=== PATIENT | female | born 1980 | race Caucasian/White ===

== ENCOUNTER 2020-03-05 05:07 | Inpatient (IN) | payer OTHER, SELFPAY ==
[2020-03-05 08:29] LABS: HCT 36.8 % (36.0-46.0); HGB 12.7 g/dL (12.0-15.5); Mean Corp. HGB Concentration 34.5 g/dL (32.0-36.0); Mean Corpuscular Hemoglobin 28.5 pg (27.0-33.0); Mean Corpuscular Volume 82.5 fL (80-95); Mean Platelet Volume 12.6 fL (8.0-11.0); Platelet Count 217 x1000/uL (130-400); RBC 4.46 m/cumm (4.00-5.20); RBC Distribution Width 13.5 % (11.7-14.6); White Blood Cell Count 12.71 k/cumm (4.4-10.8)
[2020-03-05] MEDS: Lactated Ringers 1,000 ML 200 ML IV ×2 (17:42→22:55)
[2020-03-05] MEDS: Sodium Citrate 30 ML CUP PO (17:42)
[2020-03-05] MEDS: ceFAZolin 2 GM/50 ML BAG IVPB (17:42)
--- NOTE | 2020-03-05 18:01 | OBCE_ITS ---
Date of service: 03/05/20 Time of Service: 18:02 Assessment and Plan Assessment and plan (1) Arrest of descent, delivered, current hospitalization: Start date: 03/05/20 Status: Acute Assessment and plan: Patient is a 39-year-old female primigravida who had care per her primary care providers. She presented early this morning in active labor. She progressed the point that she was completely dilated and with good maternal effort pushed for approximately 4-1/2 to 5 hours. Flattened anterior posterior diameter of her pelvis. Due to estimated weight of 8- 1/2 pounds with poor position the decision was made for primary section. The risk and benefits including infection, bleeding, injury to sound surrounding organs, risk of anesthesia, risk of thromboembolic event and were all explained to the patient full informed consent was obtained. Patient will be taken the operating room for primary section the plan would be for spinal anesthetic, conversion to general if needed. History of Present Illness History of Present Illness Chief Complaint: 39-year-old G1 at 40 weeks and 1 day with arrest of descent, pushing for 5 Consults Consult date: 03/05/20 Requesting physician: Bruce Decker Review of Systems Narrative: I was called to see the patient today after pushing for approximately 4-1/2 hours. Evaluation for operative vaginal delivery versus section was performed. Patient was found to be in the occiput posterior position with minimal It and vertex wedged against the pubic arch. Flattened sacrum with short anterior posterior diameter and estimated weight by Guevara's approximately 8-1/2 to 9 pounds. Patient has been pushing with good maternal effort however is unable to deliver the baby underneath the pubic symphysis. Constitutional Constitutional: Reports as per HPI Cardiovascular Cardiovascular: Reports system reviewed and no additional complaints, except as documented Respiratory Respiratory: Reports as per HPI Exam Narrative Exam Narrative: Gravid female with estimated weight 8-1/2 to 9 pounds baby in the persistent occiput posterior position and arrest of descent Const General: cooperative Nutritional Appearance: average body habitus and well nourished Other: Significant fatigue due to pushing Eyes General: appearance normal, both eyes and all related structures Resp Effort & Inspection: normal respiratory effort Cardio Rate: regular rate Rhythm: regular rhythm OB/External & Speculum: external exam normal Manual OB Exam: dilated 10, effaced and station '+1 Results Labs Result diagrams: 03/05/20 08:15 Labs: Laboratory Results - last 24 hr 03/05/20 03/05/20 08:15 08:15 WBC 12.71 H RBC 4.46 Hgb 12.7 Hct 36.8 MCV 82.5 MCH 28.5 MCHC 34.5 RDW 13.5 Plt Count 217 MPV 12.6 H Patient ABO/Rh O Positive Antibody Screen Negative
[2020-03-05] MEDS: Methylergonovine 0.2 MG/ML VIAL IM (19:02)
--- NOTE | 2020-03-05 20:05 | ROE_ITS ---
Date of service: 03/05/20 Operative Note Operative Note DATE OF PROCEDURE: 03/05/20 PRE-OP DIAGNOSIS: Arrest of descent POST-OP DIAGNOSIS: same POP PROCEDURE: Primary section SURGEON: Tish Bobby ANESTHESIA: spinal ESTIMATED BLOOD LOSS: 350 PATHOLOGY: none sent COMPLICATIONS: None Patient was transported to: floor Patient's condition: stable Indications: Arrest of descent, pushing greater than 5 hours Findings: Normal intrauterine with viable female infant Apgars 8 and 9. Normal uterus tubes and ovaries Procedure Description: Patient was taken the operating suite with an IV running. She was placed in the supine right lateral position and spinal anesthesia administered with ease. She was then placed in the dorsal supine position with leftward tilt prepped and draped in the usual sterile fashion. Prior to abdominal prep, heart tones were noted to be 130s. Vaginal examination performed baby was found to be in the occiput posterior position and vertex gently lifted out of the pelvis for ease of delivery. Ramirez catheter was inserted. Anesthesia tested and found to be adequate A Pfannenstiel skin incision was made carried down to the underlying fascia which was nicked in the midline and fascial instead incision extended laterally. Rectus muscles identified and split in the midline. Peritoneum identified tented up and entered sharply and the peritoneal incision extended superiorly and inferiorly. Bladder blade was inserted for retraction and vesicouterine peritoneum identified tented up and bladder flap created. A low transverse uterine incision was made with a scalpel and extended bluntly laterally. The shoulder was present at the site of the uterine incision. The vertex was gently elevated from the pelvis and the vertex delivered. Shoulders followed with ease. Three-vessel cord was noted clamped x2 and cut and the was handed off to the [facility] practice and nurse. At this point cord blood gases and cord blood sample were both obtained. The placenta was expressed from the uterus and delivered found to be intact. At this point the uterus was then exteriorized and cleared of all clot and debris. Uterine incision was closed in a double layer fashion with 0 Vicryl suture first running locked fashion and subsequent imbricated stitch. At this point the abdomen was inspected and found to be atraumatic uterus tubes and ovaries all found to be normal. Patient did have a modest amount of lower uterine segment atony. This responded nicely to IV Pitocin and 1 dose of Methergine 0.2 mg IM. The uterus was then returned to the abdomen uterine incision inspected and found to be hemostatic. At this point the fascial incision was closed using 0 Vicryl suture in a running fashion. Subcutaneous tissue irrigated with copious amounts of normal saline subcu space was reapproximated with 3-0 Vicryl in a simple interrupted fashion. Skin edge was closed with 4-0 Monocryl in a subcuticular fashion. Steri-Strip was were placed and the wound was dressed. Patient was taken to the OB floor with a Ramirez catheter draining concentrated blood-tinged urine. Sponge lap and needle counts had been correct x2 patient is in stable condition. Findings #1 viable female infant with Apgars of 8 and 9, distant occiput posterior position #2 normal-appearing tubes ovaries and uterus Patient's: None apparent
--- NOTE | 2020-03-05 20:05 | ROE_ITS ---
Date of service: 03/05/20
--- NOTE | 2020-03-05 20:05 | W.PM.OP ---
Date of service: 03/05/20
[2020-03-05] MEDS: miSOPROStol 100 MCG TAB 400 MCG PO (20:32)
[2020-03-05 21:21] LABS: COVID-19 RT-PCR UVMMC Result Negative (Negative)
[2020-03-06] MEDS: miSOPROStol 100 MCG TAB 400 MCG PO (01:52)
--- NOTE | 2020-03-06 07:02 | PGE_ITS ---
Date of Service Date of service: 03/06/20 Time of Service: 07:02 Assessment and Plan Assessment and plan (1) S/P primary low transverse : Status: Acute Assessment and plan: Patient is seen today postoperative day #1 status post primary low transverse section for arrest of descent. She is doing well. Today's plan will be ambulation, increase in diet, incentive spirometer. We will discontinue her Ramirez catheter, await morning hemoglobin. She will have her IV saline locked and she may shower. She will continue to breast-feed and the goal today would be for rest. (2) Arrest of descent, delivered, current hospitalization: Status: Acute Subjective Subjective Patient reports: tolerating a regular diet Interval history since last seen: Patient is seen and examined this morning. She is doing well. She states that she had a few hours of sleep and is working hard on breast-feeding. Her baby has a good latch. She has not been up ambulating as of yet. She did run a slightly low blood pressure throughout the evening with no signs or symptoms of hemodynamic instability. Pulse has been normal, urine output adequate, denies headache, blurry vision, or dizziness. Flatus at this point has not been passed Exam Const General: cooperative, healthy appearing, comfortable and no acute distress Orientation: awake and oriented x3 Resp Effort & Inspection: normal respiratory effort Auscultation: clear to auscultation bilaterally and diminished lung sounds bilaterally Other: Slightly diminished lung sounds at the bilateral bases Cardio Rate: regular rate Rhythm: regular rhythm Heart Sounds: S1 normal and S2 normal GI Palpation: soft and nontender Auscultation: normal bowel sounds Neuro General: patient alert, patient awake and patient oriented x3 Cognition: normal cognition Speech: speech normal Extrem General: normal to inspection, no calf tenderness, calf tenderness and edema Laterality: bilateral Right lower extremity: ankle Details: edema Details: 1+ Left lower extremity: ankle Details: pitting edema Details: 1+ Objective Objective Clinical Data: Abnormal lab results 03/05/20 Range/Units 08:15 WBC 12.71 H (4.4-10.8) k/cumm MPV 12.6 H (8.0-11.0) fL Intake & Output 03/05/20 03/05/20 03/06/20 11:59 23:59 11:59 Intake Total 1050 / 1050 Output Total 400 / 400 Balance 650 / 650 Weight 142 lb 0.902 oz Intake: IV 1050 / 1050 Output: Urine 50 / 50 Estimated Blood Loss 350 / 350 Other: Urine Color Dark Sylvie Klein Urine Appearance Clear Laboratory Results WBC 12.71 k/cumm (4.4-10.8) H 03/05/20 08:15 RBC 4.46 m/cumm (4.00-5.20) 03/05/20 08:15 Hgb 12.7 g/dL (12.0-15.5) 03/05/20 08:15 Hct 36.8 % (36.0-46.0) 03/05/20 08:15 MCV 82.5 fL (80-95) 03/05/20 08:15 MCH 28.5 pg (27.0-33.0) 03/05/20 08:15 MCHC 34.5 g/dL (32.0-36.0) 03/05/20 08:15 RDW 13.5 % (11.7-14.6) 03/05/20 08:15 Plt Count 217 x1000/uL (130-400) 03/05/20 08:15 MPV 12.6 fL (8.0-11.0) H 03/05/20 08:15 COVID-19 PCR Negative (Negative) 03/05/20 08:15 Nasopharyn COVID-19 PCR Not Applicable 03/05/20 08:15 Ref Test Perform Site [facility] lab 03/05/20 08:15 Patient ABO/Rh O Positive 03/05/20 08:15 Antibody Screen Negative 03/05/20 08:15
[2020-03-06 07:08] LABS: HCT 26.5 % (36.0-46.0); HGB 8.9 g/dL (12.0-15.5); Mean Corp. HGB Concentration 33.6 g/dL (32.0-36.0); Mean Corpuscular Hemoglobin 28.3 pg (27.0-33.0); Mean Corpuscular Volume 84.4 fL (80-95); Mean Platelet Volume 11.9 fL (8.0-11.0); Platelet Count 170 x1000/uL (130-400); RBC 3.14 m/cumm (4.00-5.20); RBC Distribution Width 13.2 % (11.7-14.6); White Blood Cell Count 14.71 k/cumm (4.4-10.8)
[2020-03-06] MEDS: oxyCODONE 5 mg/Acetaminophen 325 mg TAB PO ×2 (11:34→18:51)
[2020-03-06] MEDS: Ibuprofen 600 MG TAB PO ×2 (11:35→18:50)
[2020-03-07] MEDS: Ibuprofen 600 MG TAB PO ×2 (03:54→11:13)
[2020-03-07] MEDS: oxyCODONE 5 mg/Acetaminophen 325 mg TAB PO ×2 (03:54→11:13)
--- NOTE | 2020-03-07 07:02 | W.PM.PROGNOT ---
Date of Service Date of service: 03/07/20 Time of Service: 07:02 Assessment and Plan Assessment and plan (1) S/P primary low transverse : Status: Acute Assessment and plan: Postoperative day #2 status post primary low transverse section for arrest of descent. Doing well. Stable vital signs. Ambulating without difficulty. Anticipate discharge home today. Follow-up in women's wellness with me in 2 weeks (2) Arrest of descent, delivered, current hospitalization: Status: Acute Subjective Subjective Patient reports: no new complaints, feels better, pain is less, tolerating a regular diet and flatus; denies diarrhea, vomiting and fever Interval history since last seen: Patient is seen and examined this morning. She has had a few hours of sleep intermittently. She is breast-feeding well. Her vital signs are stable. She is ambulating and would anticipate discharge home today Exam Narrative Exam Narrative: Looks better, feels better Const General: cooperative and healthy appearing Orientation: alert and oriented x3 Resp Effort & Inspection: normal respiratory effort Auscultation: clear to auscultation bilaterally Cardio Palpation: normal PMI Rate: regular rate Heart Sounds: S1 normal, S2 normal and murmur GI Auscultation: normal bowel sounds Other: Incision is dressed, no surrounding erythema. Skin General skin exam: no rashes or lesions noted Extrem General: normal to inspection, full ROM, no calf tenderness and calf tenderness Right upper extremity: edema (1+ nonpitting edema) Objective Objective Clinical Data: Abnormal lab results 03/06/20 Range/Units 06:50 WBC 14.71 H (4.4-10.8) k/cumm RBC 3.14 L (4.00-5.20) m/cumm Hgb 8.9 L D (12.0-15.5) g/dL Hct 26.5 L D (36.0-46.0) % MPV 11.9 H (8.0-11.0) fL Vital Signs Pain Level 4 03/07/20 03:54 Intake & Output 03/06/20 03/06/20 03/07/20 11:59 23:59 11:59 Intake Total 1000 / 1000 Balance 1000 / 1000 Intake: IV 1000 / 1000 Laboratory Results WBC 14.71 k/cumm (4.4-10.8) H 03/06/20 06:50 RBC 3.14 m/cumm (4.00-5.20) L 03/06/20 06:50 Hgb 8.9 g/dL (12.0-15.5) L D 03/06/20 06:50 Hct 26.5 % (36.0-46.0) L D 03/06/20 06:50 MCV 84.4 fL (80-95) 03/06/20 06:50 MCH 28.3 pg (27.0-33.0) 03/06/20 06:50 MCHC 33.6 g/dL (32.0-36.0) 03/06/20 06:50 RDW 13.2 % (11.7-14.6) 03/06/20 06:50 Plt Count 170 x1000/uL (130-400) 03/06/20 06:50 MPV 11.9 fL (8.0-11.0) H 03/06/20 06:50 COVID-19 PCR Negative (Negative) 03/05/20 08:15 Nasopharyn COVID-19 PCR Not Applicable 03/05/20 08:15 Ref Test Perform Site [facility] lab 03/05/20 08:15 Patient ABO/Rh O Positive 03/05/20 08:15 Antibody Screen Negative 03/05/20 08:15
--- NOTE | 2020-03-07 07:06 | DSE_ITS ---
Date of service: 03/07/20 Time of Service: 07:06 DS: Diagnosis Discharge Diagnosis (1) S/P primary low transverse : Status: Acute (2) Arrest of descent, delivered, current hospitalization: Status: Acute Discharge Plan Disposition Patient Disposition: HOME Condition: Stable Discharge Details Reason For Visit: R/O LABOR Admit Date/Time: 03/05/20 07:45 Admit Provider: Bruce Decker Attending Provider: Bruce Decker Primary Care Provider: Shruthi Parks Hospital Course Hospital Course: Patient is a patient of primary care physicians for visits. She presented at term, in active labor. Patient progressed through a normal course of labor however after becoming completely dilated she had approximately 6-hour second stage. I was called to evaluate the patient for operative vaginal versus surgical intervention. Baby was noted to be above the pelvic arch with arrest of descent. Due to this fact she underwent primary low transverse section. Surgical procedure was uncomplicated. She had uncomplicated course and was discharged home postoperative day #2 ambulating, tolerating regular diet, and oral pain medication Home Meds and New Rx's Prescriptions: New acetaminophen [Tylenol] 325 mg Tablet 650 mg PO Q4H PRN PRN10 Days RF: 0 oxycodone-acetaminophen 5-325 mg Tablet 1 tab PO Q4H PRN PRN3 Days Qty: 12 RF: 0 docusate sodium [Colace] 100 mg Capsule 100 mg PO BID PRN PRN10 Days RF: 0 ibuprofen [IBU] 600 mg Tablet 600 mg PO Q6H PRN PRN10 Days Qty: 30 RF: 0 Discharge Instructions Additional Instructions: Follow-up with Dr. Bobby and women's wellness in 2 weeks Activity:: Activity as Tolerated Equipment/Supplies:: No Equipment Needed Diet:: As Tolerated DS: Summary Status at Discharge Functional status at discharge: independent ambulation Overall status at discharge: patient is back to baseline Mental Status: mental status grossly normal Speech and Movement: speech and movement normal Mood: congruent mood Affect: normal affect Exam Psych Mental Status: mental status grossly normal Speech and Movement: speech and movement normal Mood: congruent mood Affect: normal affect DS: Data Vitals/I&O Vitals and I&O: Vital Signs Pain Level 4 03/07/20 03:54 Intake & Output 03/06/20 03/06/20 03/07/20 11:59 23:59 11:59 Intake Total 1000 / 1000 Balance 1000 / 1000 Intake: IV 1000 / 1000 Data Completed and Pending Labs on day of discharge: Labs from last 24 hours 03/06/20 06:50 WBC 14.71 H RBC 3.14 L Hgb 8.9 L D Hct 26.5 L D MCV 84.4 MCH 28.3 MCHC 33.6 RDW 13.2 Plt Count 170 MPV 11.9 H [facility] Surgical History S/P primary low transverse (Acute) Social History Smoking/Tobacco Use Status: Never
--- NOTE | 2020-03-07 07:14 | W.PM.DS.N ---
DS: Diagnosis Discharge Diagnosis (1) S/P primary low transverse : Status: Acute (2) Arrest of descent, delivered, current hospitalization: Status: Acute Discharge Plan Disposition Patient Disposition: HOME Condition: Stable Discharge Details Reason For Visit: R/O LABOR Admit Date/Time: 03/05/20 07:45 Admit Provider: Bruce Decker Attending Provider: Bruce Decker Primary Care Provider: Shruthi Parks Hospital Course Hospital Course: Patient is a patient of primary care physicians for visits. She presented at term, in active labor. Patient progressed through a normal course of labor however after becoming completely dilated she had approximately 6-hour second stage. I was called to evaluate the patient for operative vaginal versus surgical intervention. Baby was noted to be above the pelvic arch with arrest of descent. Due to this fact she underwent primary low transverse section. Surgical procedure was uncomplicated. She had uncomplicated course and was discharged home postoperative day #2 ambulating, tolerating regular diet, and oral pain medication Home Meds and New Rx's Prescriptions: New acetaminophen [Tylenol] 325 mg Tablet 650 mg PO Q4H PRN PRN10 Days RF: 0 oxycodone-acetaminophen 5-325 mg Tablet 1 tab PO Q4H PRN PRN3 Days Qty: 12 RF: 0 docusate sodium [Colace] 100 mg Capsule 100 mg PO BID PRN PRN10 Days RF: 0 ibuprofen [IBU] 600 mg Tablet 600 mg PO Q6H PRN PRN10 Days Qty: 30 RF: 0 Discharge Instructions Additional Instructions: Follow-up with Dr. Bobby and women's wellness in 2 weeks Activity:: Activity as Tolerated Equipment/Supplies:: No Equipment Needed Diet:: As Tolerated DS: Summary Status at Discharge Functional status at discharge: independent ambulation Overall status at discharge: patient is back to baseline Mental Status: mental status grossly normal Speech and Movement: speech and movement normal Mood: congruent mood Affect: normal affect Exam Narrative Exam Narrative: See progress note dated 03/07/2020 Psych Mental Status: mental status grossly normal Speech and Movement: speech and movement normal Mood: congruent mood Affect: normal affect DS: Data Vitals/I&O Vitals and I&O: Vital Signs Pain Level 4 03/07/20 03:54 Intake & Output 03/06/20 03/06/20 03/07/20 11:59 23:59 11:59 Intake Total 1000 / 1000 Balance 1000 / 1000 Intake: IV 1000 / 1000 [facility] Surgical History S/P primary low transverse (Acute) Social History Smoking/Tobacco Use Status: Never
== END 2020-03-07 14:45 | disposition home or self-care (01) | DRG 788 ==
PROVIDERS: Obstetrics & Gynecology; Admitting Provider Family Medicine; PCP Family Medicine; Visit Provider Family Medicine
PROC: 10D00Z1 Extraction of Products of Conception, Low, Open Approach (ICD-10-PCS; CPT 59514; principal; 2020-03-05 18:00)
DX: O62.1 Secondary uterine inertia (principal); Z37.0 Single live birth; O77.0 Labor and delivery complicated by meconium in amniotic fluid; O64.8XX0 Obstructed labor due to other malposition and malpresentation, not applicable or unspecified; O75.81 Maternal exhaustion complicating labor and delivery; Z3A.40 40 weeks gestation of pregnancy; O48.0 Post-term pregnancy; Z03.818 Encounter for observation for suspected exposure to other biological agents ruled out; O63.1 Prolonged second stage (of labor)
CPT/HCPCS: 59514; 36415; 85027; 86850; 86900; 86901; 99232; 99238; 99253; U0003; G0378; J0690; J1885; J2210; J2405; J2590; J3010